=== PATIENT | male | born 1965 | race Caucasian/White ===

== ENCOUNTER 2018-09-08 19:22 | Emergency (ER) | payer BC, OTHER ==
[~2018-09-08] VITALS: Ht 175.3 cm; Wt 94.8 kg
[2018-09-08 19:27] VITALS: BP 160/90
--- NOTE | 2018-09-08 19:31 | NUR ---
TO LOBBY A/W BED, AMBULATORY ERMD NOTED
[2018-09-08 20:18] LABS: BASOPHILS % (AUTO) 0.6 % (0.0-2.0); EOSINOPHILS # (AUTO) 0.3 K/uL (0-0.4); EOSINOPHILS % (AUTO) 6.1 % (0.0-4.0); HEMATOCRIT 38.9 % (36-52); HEMOGLOBIN 13.2 g/dL (12.0-18.0); LYMPHOCYTES # (AUTO) 1.7 K/uL (2.0-11.5); LYMPHOCYTES % (AUTO) 36.9 % (20.5-51.1); MEAN CORPUSCULAR HEMOGLOBIN 30 pg (27-31); MEAN CORPUSCULAR HGB CONC 34 g/dL (33-37); MEAN CORPUSCULAR VOLUME 88.8 fL (80-94); MONOCYTES # (AUTO) 0.7 K/uL (0.8-1.0); NEUTROPHILS # (AUTO) 1.9 K/uL (1.8-7.7); NEUTROPHILS % (AUTO) 41.4 % (42.2-75.2); PLATELET COUNT (AUTO) 256 K/uL (140-450); RED BLOOD CELL COUNT(AUTO) 4.37 MIL/uL (4.20-6.10); RED CELL DISTRIBUTION WIDTH 13.6 % (11.6-13.7); WHITE BLOOD COUNT (AUTO) 4.7 K/uL (4.8-10.8)
[2018-09-08 20:28] LABS: CARBON DIOXIDE 28.9 mmol/L (21-32); CREATININE 1.1 mg/dL (0.7-1.3); POTASSIUM 3.9 mmol/L (3.5-5.1)
[2018-09-08 20:34] LABS: ALBUMIN 3.6 g/dL (3.4-5.0); TOTAL BILIRUBIN 0.4 mg/dL (0.0-1.0)
--- NOTE | 2018-09-08 20:50 | NUR ---
PATIENT AMBULATED TO ER BED 11.
--- NOTE | 2018-09-08 21:00 | NUR ---
PT IS A 52 Y/O MALE WHO PRESENTS TO THE ED C/O CELLULITIS. PT STATES THAT IT HAS BEEN BOTHERING HIM X4 DAYS. PT REPORTS 6/10 ACFHING R FLANK PAIN. NOTED SWELLING AND REDNESS TO THE R FLANK. PATIENT TOOK TYLENOL. PT DENIES CP, SOB, N/V/D. PT AWAKE AND ALERT, RR EVEN/UNLABORED. PT REPOSITIONED FOR COMFORT, BED IN LOWEST POSITION. ER PROVIDER NOTIFIED. WILL CONTINUE TO MONITOR.
--- NOTE | 2018-09-08 22:30 | NUR ---
PATIENT RESTING AT THIS TIME; NO SIGNS OF DISTRESS.
[2018-09-08 23:25] VITALS: BP 142/81
--- NOTE | 2018-09-08 23:25 | NUR ---
Patient discharged with v/s stable. Written and verbal after care instructions given and explained. Patient alert, oriented and verbalized understanding of instructions. Ambulatory with steady gait. All questions addressed prior to discharge. ID band removed. Patient advised to follow up with PMD. Rx of MIRALAX POWDER FOR SOLUTION given. Patient educated on indication of medication including possible reaction and side effects. Opportunity to ask questions provided and answered.
== END 2018-09-08 23:25 | disposition home or self-care (01) ==
LOC: MED 19:22
DX: K59.00 Constipation, unspecified (principal); R21 Rash and other nonspecific skin eruption; I10 Essential (primary) hypertension; F10.10 Alcohol abuse, uncomplicated; M79.605 Pain in left leg; M79.604 Pain in right leg
CPT/HCPCS: 36415; 80053; 83605; 85025; 87040; 99284